=== PATIENT | female | born 1990 | race African-American/Black ===

== ENCOUNTER 2023-12-12 16:53 | Emergency (ER) | payer OTHER ==
[2023-12-12 17:05] VITALS: BP 117/85; PULSE 66; RESP 18; TEMP 98; BMI 28.9
[2023-12-12 18:23] LABS: BASO % 0.8 % (0-2.0); EOS % 1.8 % (0-4.5); HEMATOCRIT 37.2 % (32.4-45.2); HEMOGLOBIN 12.2 GM/dL (10.7-15.3); LYMPH % 23.4 % (8-40); MCHC 32.9 g/dl (32.0-36.0); MEAN CELL VOLUME 75.9 fl (80-96); MEAN PLT VOLUME 8.1 fl (7.5-11.1); MONO % 11.3 % (3.8-10.2); NEUT % 62.7 % (42.8-82.8); PLATELET COUNT 265 10^3/uL (134-434); RDW 13.5 % (11.6-15.6); WHITE BLOOD COUNT 8.2 K/mm3 (4.0-10.0)
[2023-12-12 18:26] LABS: EPI CELLS 16 /uL (0-25.1); HYALINE CASTS 0 /uL (0-3.1); URINE APPEARANCE CLEAR; URINE BACTERIA 488 /uL (0-1359); URINE BILIRUBIN NEGATIVE (NEGATIVE); URINE COLOR YELLOW; URINE GLUCOSE (UA) NEGATIVE (NEGATIVE); URINE KETONE NEGATIVE (NEGATIVE); URINE LEUK ESTERASE TRACE (NEGATIVE); URINE NITRITE NEGATIVE (NEGATIVE); URINE PROTEIN NEGATIVE (NEGATIVE); URINE RBC 4 /uL (0-23.9); URINE UROBILINOGEN 0.2 mg/dL (0.2-1.0); URINE WBC 31 /uL (0-25.8)
[2023-12-12 18:41] LABS: POTASSIUM 4.5 mmol/L (3.5-5.1)
[2023-12-12 18:43] LABS: BLOOD UREA NITROGEN 10.3 mg/dL (7-18)
[2023-12-12 18:46] LABS: CREATININE 0.9 mg/dL (0.55-1.3)
== END 2023-12-12 21:35 | disposition home or self-care (01) ==
LOC: JER 16:53
DX: O26.891 Other specified pregnancy related conditions, first trimester (principal); R10.2 Pelvic and perineal pain; O20.9 Hemorrhage in early pregnancy, unspecified; Z3A.01 Less than 8 weeks gestation of pregnancy
CPT/HCPCS: 36415; 76801-TC; 80048; 81003; 84702; 85025; 86850; 86900; 86901; 87086; 99284-25

== ENCOUNTER 2024-08-01 22:45 | Inpatient (IN) | payer OTHER ==
[2024-08-01] MEDS: DEXTROSE 5%-LACTATED RINGERS 1,000 ML IV SCH (23:05)
[2024-08-01] MEDS: OXYTOCIN 20 UNITS in 0.9% NS 20 UNIT/1,000 ML INFUS.BAG IV SCH (23:17)
[2024-08-01] MEDS ORDERED: oxyCODONE HCL 5 MG TABLET PO PRN (23:36)
[2024-08-01] MEDS ORDERED: BENZOCAINE 20% 57 GM BOTTLE TP PRN (23:36)
[2024-08-01] MEDS ORDERED: METHYLERGONOVINE MALEATE 0.2 MG/1 ML AMP IM PRN (23:36)
[2024-08-01] MEDS ORDERED: BENZOCAINE 28 GM HEMORRHOIDAL OINTMENT TP PRN (23:36)
[2024-08-01] MEDS ORDERED: WITCH HAZEL 50% (TUCKS) 40 PAD/JAR PAD TP PRN (23:36)
[2024-08-01] MEDS ORDERED: BISACODYL 10 MG SUPP.RECT RC PRN (23:36)
[2024-08-01 23:55] LABS: BASO % 0.5 % (0-2.0); EOS % 1.5 % (0-4.5); HEMATOCRIT 34.9 % (32.4-45.2); HEMOGLOBIN 11.5 GM/dL (10.7-15.3); LYMPH % 24.7 % (8-40); MCHC 32.9 g/dl (32.0-36.0); MEAN CELL VOLUME 72.9 fl (80-96); MEAN PLT VOLUME 8.9 fl (7.5-11.1); MONO % 11.2 % (3.8-10.2); NEUT % 62.1 % (42.8-82.8); PLATELET COUNT 188 10^3/uL (134-434); RBC 4.78 M/mm3 (3.60-5.2); RDW 14.6 % (11.6-15.6); WHITE BLOOD COUNT 9.9 K/mm3 (4.0-10.0)
[2024-08-01 23:58] LABS: POTASSIUM 3.8 mmol/L (3.5-5.1)
[2024-08-01 23:59] LABS: CALCIUM 9.2 mg/dL (8.5-10.1)
[2024-08-02] LABS: BLOOD UREA NITROGEN 9.2 mg/dL (7-18)
[2024-08-02 00:13] VITALS: BMI 35.4
[2024-08-02] MEDS ORDERED: ACETAMINOPHEN 325 MG TABLET (FP) ONE (01:12)
[2024-08-02] MEDS: ACETAMINOPHEN 325 MG TABLET (FP) PO PRN (01:14)
[2024-08-02] MEDS: IBUPROFEN 600 MG TABLET (FP) PO PRN (02:34)
[2024-08-02 08:15] LABS: BASO % 0.5 % (0-2.0); EOS % 0.6 % (0-4.5); HEMATOCRIT 31.8 % (32.4-45.2); HEMOGLOBIN 10.7 GM/dL (10.7-15.3); LYMPH % 11.7 % (8-40); MCH 24.1 pg (25.7-33.7); MCHC 33.6 g/dl (32.0-36.0); MEAN CELL VOLUME 71.6 fl (80-96); MEAN PLT VOLUME 9.4 fl (7.5-11.1); NEUT % 79.2 % (42.8-82.8); PLATELET COUNT 193 10^3/uL (134-434); RBC 4.44 M/mm3 (3.60-5.2); RDW 14.7 % (11.6-15.6); WHITE BLOOD COUNT 13.1 K/mm3 (4.0-10.0)
[2024-08-02 10:31] LABS: INR 0.95 (0.83-1.09); PROTHROMBIN TIME (PATIENT) 10.7 SEC (9.7-13.0)
[2024-08-02] MEDS: PRENATAL VITAMINS W/ FOLIC ACID TABLET (FP) PO SCH (10:40)
[2024-08-02] MEDS: FERROUS SO4 325 MG TABLET (FP) PO SCH (10:41)
[2024-08-02] MEDS: DIPHTH,PERTUSS(ACELL),TET 0.5 ML DISP.SYRIN IM ONE (17:24)
[2024-08-02] MEDS ORDERED: SENNOSIDES/DOCUSATE COMBO (SENNA PLUS) TABLET (UD) PO PRN (22:00)
[2024-08-03 12:26] VITALS: BP 126/85; PULSE 72; RESP 18; TEMP 98.5
== END 2024-08-03 15:55 | disposition home or self-care (01) | DRG 560 ==
LOC: JLDR 22:45 → J3W 08-02 01:34
PROVIDERS: ADMIT Obstetrics & Gynecology; ATTEND Obstetrics & Gynecology
PROC: 10E0XZZ Delivery of Products of Conception, External Approach (ICD-10-PCS; principal; 2024-08-01)
DX: O80 Encounter for full-term uncomplicated delivery (principal); Z3A.39 39 weeks gestation of pregnancy; Z37.0 Single live birth
CPT/HCPCS: 36415; 59025; 59409; 80048; 85025; 85610; 85730; 86780; 86850; 86900; 86901; 90715